=== PATIENT | male | born 1990 | race African-American/Black ===

== ENCOUNTER 2017-01-03 23:55 | Emergency (ER) | payer OTHER ==
--- NOTE | ~2017-01-03 | CR230 ---
[facility] A Service of [facility] & [facility] RADIOLOGY TEXT RESULTS PATIENT: CHRISTINA SUMNER LOCATION: SED : [birth year] UNIT #: [id number] AGE: [address]: Keaton Edwards MD SEX: M ORDER DR: [id number] [place] [id number] E MR#: [id number] Acc #: [id number] NAME: CHRISTINA SUMNER : 1990 SEX: M STUDY DATE/TIME: 01/04/2017 01:58 UNIT: SED ROOM: STUDY DESCRIPTION: CR Shoulder Min 2 View Rt Attending Physician: Keaton Edwards M.D. Ordering Physician: Keaton Edwards M.D. MEDICAL IMAGING REPORT This report is preliminary unless electronic signature is present. EXAM Right shoulder 01/04/2017 at 01:58 INDICATION Chronic shoulder pain. Prior history of dislocation. The patient's current symptoms started about 1 hour ago. FINDINGS 2 views of the right shoulder were obtained. No comparison. There is no fracture or dislocation. There is no AC joint separation. IMPRESSION Negative right shoulder. Dictated by... Demarcus Bergman Jr., M.D. THIS IS AN ELECTRONICALLY VERIFIED REPORT Demarcus Bergman Jr., M.D. at 01/04/2017 11:15 AM LENA/sedrick TD: 01/04/2017 08:29 JOB #: [id number] MEDICAL IMAGING REPORT Page 1 of 1
[~2017-01-03 23:55] MED LIST: FLEXERIL; IBUPROFEN
== END 2017-01-04 02:51 | disposition home or self-care (01) ==
LOC: SED 23:55
DX: M25.511 Pain in right shoulder (principal)
CPT/HCPCS: 73030; 99283

== ENCOUNTER 2017-05-30 15:25 | Emergency (ER) | payer OTHER ==
[~2017-05-30] VITALS: Ht 165.1 cm; Wt 99.8 kg
--- NOTE | ~2017-05-30 | CR132 ---
[facility] A Service of [facility] RADIOLOGY TEXT RESULTS PATIENT: CHRISTINA SUMNER LOCATION: SED : [birth year] UNIT #: [id number] AGE: [address]: CHARLY VERA SEX: M ORDER DR: [id number] [place] [id number] E MR#: [id number] Acc #: [id number] NAME: CHRISTINA SUMNER : 1990 SEX: M STUDY DATE/TIME: 05/30/2017 16:13 UNIT: SED ROOM: STUDY DESCRIPTION: CR Forearm 2 View Lt Attending Physician: Charly Vera Aprn Ordering Physician: Charly Vera Aprn Primary Care Physician: No Primary Care Physician MEDICAL IMAGING REPORT This report is preliminary unless electronic signature is present. EXAM Left forearm, 2 views. COMPARISON None INDICATION 26-year-old male with medial and distal forearm laceration. Questionable foreign body. Laceration occurred today. FINDINGS No radiopaque foreign body. There is subcutaneous gas at the distal aspect of the ulna consistent with laceration. Bones are anatomically aligned. No evidence of acute fracture. This could represent an ossicle at the volar aspect of the wrist, measuring 3 mm. IMPRESSION There is 3 mm density at the volar aspect of the wrist, which is favored to represent an ossicle. If there is a laceration in this site, retained foreign body cannot entirely be excluded. Correlation with the site of laceration is recommended. Otherwise, there is no evidence of a radiopaque foreign body. No fracture or dislocation of the left forearm. Dictated by... Prem Palacios M.D. THIS IS AN ELECTRONICALLY VERIFIED REPORT Prem Palacios M.D. at 06/06/2017 9:14 AM AAYUSH/harlan [facility] A Service of [facility] RADIOLOGY TEXT RESULTS PATIENT: CHRISTINA SUMNER LOCATION: SED : [birth year] UNIT #: [id number] AGE: [address]: CHARLY VERA SEX: M ORDER DR: TD: 05/30/2017 22:25 JOB #: [id number] MEDICAL IMAGING REPORT Page 1 of 1
== END 2017-05-30 19:16 | disposition home or self-care (01) ==
LOC: SED 15:25
DX: S46.802A Unspecified injury of other muscles, fascia and tendons at shoulder and upper arm level, left arm, initial encounter (principal); F17.210 Nicotine dependence, cigarettes, uncomplicated; W45.8XXA Other foreign body or object entering through skin, initial encounter; Z23 Encounter for immunization
CPT/HCPCS: 12002; 73090; 90471; 90715; 99284